=== PATIENT | male | born 1955 | race Caucasian/White ===

== ENCOUNTER 2018-09-27 13:40 | Emergency (ER) | payer MEDICAID ==
[~2018-09-27] VITALS: Ht 157.5 cm; Wt 86.2 kg
[2018-09-27] MEDS ORDERED: BALANCED SALT IRRIG SOLN 15 ML IO ONE (13:41)
--- NOTE | 2018-09-27 14:45 | NUR ---
Patient to ER bed 04 to gown for evaluation. Side rails up.
[2018-09-27 14:46] VITALS: BP_SYST 136
--- NOTE | 2018-09-27 14:50 | NUR ---
Patient arrived to ED, AAOx4, and ambulatory with steady gait. Patient c/c of left eye pain today with foreign body sensation. Patient reports he was walking yesterday and feels as if a rock or dirt got into his eye. Pain is mild in severity. No known alleviating factors. No visual changes, drainage, fever, chills, headache, recent trauma, or other complaints. Will continue to follow up and monitor.
--- NOTE | 2018-09-27 14:57 | NUR ---
Dr Montaño at bedside examining patient
[2018-09-27 15:31] VITALS: BP_SYST 134
--- NOTE | 2018-09-27 15:31 | NUR ---
Patient given written and verbal discharge instructions and verbalizes understanding. ER MD discussed with patient the results and treatment provided. Patient in stable condition. ID arm band removed. Rx of Visine tears and Tylenol given. Patient educated on pain management and to follow up with PMD. Pain Scale 0/10. Opportunity for questions provided and answered. Medication side effect fact sheet provided.
== END 2018-09-27 15:31 | disposition home or self-care (01) ==
LOC: SED 13:40
DX: T15.92XA Foreign body on external eye, part unspecified, left eye, initial encounter (principal); X58.XXXA Exposure to other specified factors, initial encounter; Y93.01 Activity, walking, marching and hiking; Y92.89 Other specified places as the place of occurrence of the external cause; Y99.8 Other external cause status
CPT/HCPCS: 99283; J7040